=== PATIENT | female | born 1955 | race Caucasian/White ===

== ENCOUNTER 2023-01-21 20:55 | Emergency (ER) | payer MEDICARE ==
--- OUTSIDE RECORDS SUMMARY | 2023-01-21 20:57 | XMS REPORT | Continuity of Care Document ---
:1955 Author Organization [facility] t Address [address] [place] [address] [place] [id number] Care Team Providers Name Role Phone Unavailable Unavailable Unavailable Payers Payer Name Policy Type Policy Number Effective Date Expiration Date S [facility] [id number] 2021 (MEDICARE 00:00:00 REPLACEMENT O) Problems This patient has no known problems. Allergies, Adverse Reactions, Alerts This patient has no known allergies or adverse reactions. Medications This patient has no known medications. Procedures This patient has no known procedures. Encounters Start End Encounter Admission Attending Care Care Encounter Source Date/Time Date/Time Type Type Clinicians Facility Department ID 2022-03-14 2022-03-14 Outpatient [facility] [id number] [facility] 03:53:00 03:53:00 [id number] [facility] 2022-03-14 2022-03-14 [facility] [id number] [facility] 00:00:00 00:00:00 [id number] [facility] 2021-06-15 2021-06-15 [facility]patient [facility] [id number] [facility] 12:00:00 12:00:00 [id number] [facility] l [facility] Results This patient has no known results.
[2023-01-21 22:35] LABS: Absolute Lymphocytes (CBC) 0.4 K/uL (0.7-4.9); Hematocrit 38.6 % (36.0-45.0); Lymphocytes % 3.1 % (15.3-44.8); MCV 89.6 fL (80-100); MPV 8.6 fL (7.6-11.3); RBC Red Blood Cell Count 4.31 M/uL (3.86-4.86)
[2023-01-21 22:52] LABS: ALT/SGPT 20 U/L (13-56); AST/SGOT 20 U/L (15-37); Albumin 3.8 g/dL (3.4-5.0); Alkaline Phosphatase 70 U/L (45-117); BUN Blood Urea Nitrogen 22 mg/dL (7-18); Bicarbonate 22 mEq/L (21-32); Bilirubin Total 0.3 mg/dL (0.2-1.0); Glomerular Filtration Rate 66 ml/min (=/>90); Glucose Level 168 mg/dL (74-106); Lipase 24 U/L (13-75); Potassium 3.7 mEq/L (3.5-5.1); Protein, Total 7.7 g/dL (6.4-8.2); Sodium Level 137 mEq/L (136-145)
[2023-01-21] MEDS ORDERED: NA CHLORIDE 0.9% 1,000 ML ONE (22:59)
[2023-01-21] MEDS ORDERED: HYDROMORPHONE HCL 1 MG/ML INJ ONE (22:59)
[2023-01-21] MEDS ORDERED: ONDANSETRON 4 MG/2 ML VIAL ONE (22:59)
[2023-01-21 23:13] LABS: Troponin High Sensitivity < 3.0 pg/mL (<58.9)
[2023-01-21 23:30] LABS: Blood Morphology Comment NOT SEEN (NOT SEEN); Platelet Estimate ADEQ
[2023-01-22] MEDS ORDERED: NA CHLORIDE 0.9% 100 ML ONE (01:02)
[2023-01-22] MEDS ORDERED: PIPERACIL/TAZO 3.375 GM VIAL IV ONE (01:02)
--- NOTE | 2023-01-22 01:18 | EDPHYS ---
Physician Documentation [facility] Name: Bisi Brito Age: 67 yrs Sex: Female : 1955 Arrival Date: 01/21/2023 Time: 20:55 Bed 19 Private MD: ED Physician Veda Castillo HPI: 01/21 22:12 This 67 yrs old Female presents to ER via Ambulatory with complaints of Abdominal Pain, sp3 Nausea, Vomiting. 22:12 67-year-old female with history of cirrhosis of the liver and no other medical problems sp3 and takes no medications now presents with 1 day history of abdominal pain epigastric in nature, vomiting x2 and diarrhea times multiple episodes. Patient denies fever, chest pain, shortness of breath, headache, known sick contacts, travel history, possible bad food, syncope, near syncope, rash, focal neurological deficit or any other signs or symptoms on ROS at this time.. Historical: - Allergies: 21:32 No Known Allergies; mb9 - Home Meds: 21:32 None [Active]; mb9 - PMHx: 21:32 Cirrhosis of liver; mb9 - PSHx: 21:32 Cholecystectomy; Total abdominal hysterectomy; mb9 - Immunization history:: Adult Immunizations up to date. - Social history:: Smoking status: Patient/guardian denies using tobacco, Stopped _ months ago 3. ROS: 22:15 Constitutional: Negative for fever, chills, and weight loss, Eyes: Negative for injury, sp3 pain, redness, and discharge, ENT: Negative for injury, pain, and discharge, Neck: Negative for injury, pain, and swelling, Cardiovascular: Negative for chest pain, palpitations, and edema, Respiratory: Negative for shortness of breath, cough, wheezing, and pleuritic chest pain, Back: Negative for injury and pain, MS/Extremity: Negative for injury and deformity, Skin: Negative for injury, rash, and discoloration, Neuro: Negative for headache, weakness, numbness, tingling, and seizure, Psych: Negative for depression, anxiety, suicide ideation, homicidal ideation, and hallucinations, Allergy/Immunology: Negative for hives, rash, and allergies, Endocrine: Negative for neck swelling, polydipsia, polyuria, polyphagia, and marked weight changes, Hematologic/Lymphatic: Negative for swollen nodes, abnormal bleeding, and unusual bruising. 22:15 All other systems are negative. Exam: 22:15 Constitutional: This is a well developed, well nourished patient who is awake, alert, sp3 and in no acute distress. Head/Face: Normocephalic, atraumatic. Eyes: Pupils equal round and reactive to light, extra-ocular motions intact. Lids and lashes normal. Conjunctiva and sclera are non-icteric and not injected. Cornea within normal limits. Periorbital areas with no swelling, redness, or edema. Neck: Trachea midline, no thyromegaly or masses palpated, and no cervical lymphadenopathy. Supple, full range of motion without nuchal rigidity, or vertebral point tenderness. No Meningismus. Chest/axilla: Normal chest wall appearance and motion. Nontender with no deformity. No lesions are appreciated. Cardiovascular: Regular rate and rhythm with a normal S1 and S2. No gallops, murmurs, or rubs. Normal PMI, no JVD. No pulse deficits. Respiratory: Lungs have equal breath sounds bilaterally, clear to auscultation and percussion. No rales, rhonchi or wheezes noted. No increased work of breathing, no retractions or nasal flaring. Back: No spinal tenderness. No costovertebral tenderness. Full range of motion. Skin: Warm, dry with normal turgor. Normal color with no rashes, no lesions, and no evidence of cellulitis. MS/ Extremity: Pulses equal, no cyanosis. Neurovascular intact. Full, normal range of motion. Neuro: Awake and alert, GCS 15, oriented to person, place, time, and situation. Cranial nerves II-XII grossly intact. Motor strength 5/5 in all extremities. Sensory grossly intact. Cerebellar exam normal. Normal gait. Psych: Awake, alert, with orientation to person, place and time. Behavior, mood, and affect are within normal limits. 22:15 Abdomen/GI: Patient has epigastric pain to palpation without peritoneal signs, rebound or guarding. Hyperactive bowel sounds noted. Patient is also gagging but no current emesis.. 01/22 01:01 ECG was reviewed by the Attending Physician. EKG demonstrates normal sinus rhythm at 75 sp3 bpm with normal intervals, normal QRS, normal axis, nonspecific diffuse ST/T changes without evidence of acute ischemia. Vital Signs: 01/21 21:31 BP 125 / 67; Pulse 91; Resp 18; Temp 98(O); Pulse Ox 100% on R/A; Weight 54.43 kg; mb9 Height 5 ft. 6 in. ; Pain 10/10; 22:30 BP 121 / 51; Pulse 80; Resp 18 S; Pulse Ox 94% on 2 lpm NC; ha1 23:30 BP 139 / 58; Pulse 75; Resp 16; Pulse Ox 97% on 2 lpm NC; ha1 01/22 00:30 BP 141 / 64; Pulse 87; Resp 16 S; Pulse Ox 94% 2 lpm ; ha1 01:30 BP 131 / 56; Pulse 78; Resp 18 S; Pulse Ox 95% on 2 lpm NC; ha1 02:30 BP 127 / 53; Pulse 74; Resp 16 S; Pulse Ox 97% on 2 lpm NC; ha1 01/21 21:31 Body Mass Index 19.37 (54.43 kg, 167.64 cm) [facility] 01/21 21:31 Pain Scale: Adult [facility] MDM: 01/21 22:05 Patient medically screened. sp3 22:15 Data reviewed: vital signs, nurses notes, lab test result(s), EKG, radiologic studies. sp3 ED course: 67-year-old female with liver cirrhosis now with epigastric pain, vomiting and diarrhea. Differential diagnosis is broad includes foodborne illness, pancreatitis, biliary pathology including cholecystitis, acute coronary syndrome, functional abdominal pain, viral syndrome, among others. Will obtain CT scan of the abdomen pelvis, laboratory values and treat with Dilaudid and Zofran for symptomatic control with additional medications as needed. Disposition pending work-up and patient course.. 01/22 01:15 ED course: CT shows common bile duct dilatation of 9 mm close to the pancreatic head. sp3 Biliary labs are all within normal limits including AST, ALT, total bili, alk phos. MRCP will be indicated along with possible ERCP. Discussed with Dr. Batista at [facility] who is graciously excepted this patient and will consult gastroenterology upon arrival.. 01/21 22:04 Order name: CBC with Diff; Complete Time: 23:40 sp3 01/21 22:04 Order name: CMP; Complete Time: 23:40 sp3 01/21 22:04 Order name: Lipase; Complete Time: 23:40 sp3 01/21 22:04 Order name: Troponin High Sensitivity; Complete Time: 23:40 sp3 01/21 22:39 Order name: Manual Differential; Complete Time: 23:40 EDMS 01/22 00:48 Order name: SARS RAPID rv1 01/21 22:04 Order name: CT Abd/Pelvis - IV Contrast Only sp3 01/21 22:04 Order name: EKG; Complete Time: 22:05 sp3 01/21 22:04 Order name: IV Saline Lock; Complete Time: 22:31 sp3 01/21 22:04 Order name: Labs collected and sent; Complete Time: 22:31 sp3 01/21 22:04 Order name: EKG - Nurse/Tech; Complete Time: 22:57 sp3 Administered Medications: 01/21 22:13 Drug: Ondansetron IVP 4 mg Route: IVP; Site: right antecubital; ha1 22:40 Follow up: Response: No adverse reaction; Nausea is decreased ha1 22:15 Drug: HYDROmorphone IVP 1 mg Route: IVP; Site: right antecubital; ha1 22:40 Follow up: Response: No adverse reaction; Pain is decreased; RASS: Alert and Calm (0) ha1 22:18 Drug: NS 0.9% IV 1000 ml Route: IV; Rate: 1 bolus; Site: right antecubital; ha1 01/22 02:49 Follow up: Response: No adverse reaction; IV Status: Completed infusion; IV Intake: ha1 1000ml 01:05 Drug: Piperacillin-Tazobactam IVPB 3.375 grams Route: IVPB; Infused Over: 60 mins; ha1 Site: left antecubital; 01:35 Follow up: Response: No adverse reaction; IV Status: Completed infusion; IV Intake: ha1 100ml 02:41 Drug: Ondansetron IVP 4 mg Route: IVP; Site: left antecubital; ha1 03:25 Drug: HYDROmorphone IVP 1 mg Route: IVP; Site: left antecubital; ha1 Disposition Summary: 01/22/23 01:16 Transfer Ordered Transfer Location: [facility] sp3 Reason: Higher level of care sp3 Condition: Stable sp3 Problem: new sp3 Symptoms: have worsened sp3 Accepting Physician: Dr. Batista(01/22/23 03:36) ha1 Diagnosis - Abdominal pain, common bile duct dilatation, leukocytosis sp3 Forms: - Medication Reconciliation Form sp3 - SBAR form sp3 Signatures: Dispatcher [employer] EDMS Yung Ramirez, STEAM LOCOMOTIVE FIRER/FIREMAN-C STEAM LOCOMOTIVE FIRER/FIREMAN-Cla1 Veda Castillo MD MD sp3 Sanna Ozuna RN RN ha1 Tanika Cano RN RN mb9 Corrections: (The following items were deleted from the chart) 03:36 01:16 Dr. Batista sp3 ha1
--- NOTE | 2023-01-22 01:18 | ER ---
Nurse's Notes [facility] Name: Bisi Brito Age: 67 yrs Sex: Female : 1955 Arrival Date: 01/21/2023 Time: 20:55 Bed 19 Private MD: Diagnosis: Abdominal pain, common bile duct dilatation, leukocytosis Presentation: 01/21 21:31 Chief complaint: Patient states: "I've been throwing up, having diarrhea, and have a mb9 headache that started today. My stomach hurts all over. I've never felt like this before". Coronavirus screen: Vaccine status: Patient reports being unvaccinated. Ebola Screen: No symptoms or risks identified at this time. Initial Sepsis Screen: Does the patient meet any 2 criteria? No. Patient's initial sepsis screen is negative. Does the patient have a suspected source of infection? No. Patient's initial sepsis screen is negative. Risk Assessment: Do you want to hurt yourself or someone else? Patient reports no desire to harm self or others. Onset of symptoms was January 21, 2023. 21:31 Method Of Arrival: Ambulatory 9 21:31 Acuity: TAYLOR 3 mb9 Triage Assessment: 21:33 General: Appears uncomfortable, Behavior is cooperative. Pain: Complains of pain in mb9 abdomen and head Pain currently is 10 out of 10 on a pain scale. Quality of pain is described as aching, throbbing, Pain began suddenly, Is continuous. Neuro: Reilly Agitation-Sedation Scale (RASS): 0 - Alert and Calm Level of Consciousness is awake, alert, obeys commands, Oriented to person, place, time, situation, Appropriate for age. Respiratory: Airway is patent Respiratory effort is even, unlabored, Respiratory pattern is regular, symmetrical. GI: Abdomen is flat, non-distended, Reports diarrhea, nausea, vomiting. Derm: Skin is pink, warm \\T\\ dry. Historical: - Allergies: 21:32 No Known Allergies; mb9 - Home Meds: 21:32 None [Active]; mb9 - PMHx: 21:32 Cirrhosis of liver; mb9 - PSHx: 21:32 Cholecystectomy; Total abdominal hysterectomy; mb9 - Immunization history:: Adult Immunizations up to date. - Social history:: Smoking status: Patient/guardian denies using tobacco, Stopped _ months ago 3. Screenin:34 [facility] ED Fall Risk Assessment (Adult) History of falling in the last 3 months, ha1 including since admission No falls in past 3 months (0 pts) Confusion or Disorientation Yes (5 pts) Intoxicated or Sedated No (0 pts) Impaired Gait No (0 pts) Mobility Assist Device Used Yes (1 pt) Altered Elimination No (0 pt) Score/Fall Risk Level 0 - 2 = Low Risk Oriented to surroundings, Maintained a safe environment, Educated pt \\T\\ family on fall prevention, incl call for assistance when getting out of bed, Hourly rounding (assess needs \\T\\ fall precautionary measures) done. 01/22 00:35 Abuse screen: Denies threats or abuse. Denies injuries from another. Nutritional ha1 screening: No deficits noted. Tuberculosis screening: No symptoms or risk factors identified. Assessment: 01/21 21:34 General: Appears uncomfortable, Behavior is calm, cooperative. Pain: Complains of pain ha1 in back flank. Pain: Pain does not radiate. Pain currently is 8 out of 10 on a pain scale. Neuro: Level of Consciousness is awake, alert, obeys commands, Oriented to person, place, time, situation. Cardiovascular: Patient's skin is warm and dry. Respiratory: Airway is patent Respiratory effort is even, unlabored, Respiratory pattern is regular, symmetrical. 21:34 GI: Bowel sounds present X 4 quads. Abd is soft and non tender X 4 quads. Reports ha1 diarrhea, nausea, vomiting. 22:35 Reassessment: Patient and/or family updated on plan of care and expected duration. Pain ha1 level reassessed. Patient is alert, oriented x 3, equal unlabored respirations, skin warm/dry/pink. 23:30 Reassessment: Patient and/or family updated on plan of care and expected duration. Pain ha1 level reassessed. Patient is alert, oriented x 3, equal unlabored respirations, skin warm/dry/pink. 01/22 00:25 Reassessment: Patient and/or family updated on plan of care and expected duration. Pain ha1 level reassessed. Patient is alert, oriented x 3, equal unlabored respirations, skin warm/dry/pink. Patient states feeling better. Patient states symptoms have improved. 01:30 Reassessment: Patient and/or family updated on plan of care and expected duration. Pain ha1 level reassessed. Patient is alert, oriented x 3, equal unlabored respirations, skin warm/dry/pink. 02:15 Reassessment: report given to receiving nurse HEMA Jansen. ha1 02:30 Reassessment: Patient and/or family updated on plan of care and expected duration. Pain ha1 level reassessed. Patient is alert, oriented x 3, equal unlabored respirations, skin warm/dry/pink. 03:00 Reassessment: awaiting on EMS. ha1 03:25 Reassessment: requesting pain medication before transportation. Notified care provider. ha1 Vital Signs: 01/21 21:31 BP 125 / 67; Pulse 91; Resp 18; Temp 98(O); Pulse Ox 100% on R/A; Weight 54.43 kg; mb9 Height 5 ft. 6 in. ; Pain 10/10; 22:30 BP 121 / 51; Pulse 80; Resp 18 S; Pulse Ox 94% on 2 lpm NC; ha1 23:30 BP 139 / 58; Pulse 75; Resp 16; Pulse Ox 97% on 2 lpm NC; ha1 01/22 00:30 BP 141 / 64; Pulse 87; Resp 16 S; Pulse Ox 94% 2 lpm ; ha1 01:30 BP 131 / 56; Pulse 78; Resp 18 S; Pulse Ox 95% on 2 lpm NC; ha1 02:30 BP 127 / 53; Pulse 74; Resp 16 S; Pulse Ox 97% on 2 lpm NC; ha1 01/21 21:31 Body Mass Index 19.37 (54.43 kg, 167.64 cm) 9 01/21 21:31 Pain Scale: Adult 9 ED Course: 01/21 20:57 Patient arrived in ED. ja2 21:01 Veda Castillo MD is Attending Physician. sp3 21:32 Triage completed. mb9 21:33 Arm band placed on. mb9 21:34 Patient has correct armband on for positive identification. Placed in gown. Bed in low ha1 position. Call light in reach. Side rails up X 1. Adult w/ patient. 21:51 Sanna Ozuna RN is Primary Nurse. ha1 22:31 CBC with Diff Sent. ha1 22:31 CMP Sent. ha1 22:31 Lipase Sent. ha1 01/22 00:15 CT Abd/Pelvis - IV Contrast Only In Process Unspecified. EDMS 00:[address] [facility] with Amelie Ramirez. rv1 03:34 No provider procedures requiring assistance completed. Patient transferred, IV remains ha1 in place. Administered Medications: 01/21 22:13 Drug: Ondansetron IVP 4 mg Route: IVP; Site: right antecubital; ha1 22:40 Follow up: Response: No adverse reaction; Nausea is decreased ha1 22:15 Drug: HYDROmorphone IVP 1 mg Route: IVP; Site: right antecubital; ha1 22:40 Follow up: Response: No adverse reaction; Pain is decreased; RASS: Alert and Calm (0) ha1 22:18 Drug: NS 0.9% IV 1000 ml Route: IV; Rate: 1 bolus; Site: right antecubital; ha1 01/22 02:49 Follow up: Response: No adverse reaction; IV Status: Completed infusion; IV Intake: ha1 1000ml 01:05 Drug: Piperacillin-Tazobactam IVPB 3.375 grams Route: IVPB; Infused Over: 60 mins; ha1 Site: left antecubital; 01:35 Follow up: Response: No adverse reaction; IV Status: Completed infusion; IV Intake: ha1 100ml 02:41 Drug: Ondansetron IVP 4 mg Route: IVP; Site: left antecubital; ha1 03:25 Drug: HYDROmorphone IVP 1 mg Route: IVP; Site: left antecubital; ha1 Medication: 02:57 VIS not applicable for this client. ha1 Intake: 01:35 IV: 100ml; Total: 100ml. ha1 02:49 IV: 1000ml; Total: 1100ml. ha1 Outcome: 01:16 ER care complete, transfer ordered by . sp3 02:58 Discharge instructions given to patient, family, Instructed on the need for transfer, ha1 Demonstrated understanding of instructions. 03:35 Transferred by ground EMS to [facility], Transfer form completed. ha1 Note: transferred by [facility] 03:35 Condition: stable 03:36 Patient left the ED. ha1 Signatures: Dispatcher [employer] EDMS Veda Castillo MD MD sp3 Rama Guevara Heidy RN RN ha1 Tanika Cano RN RN mb9 Chaya Robbins 1 Corrections: (The following items were deleted from the chart) 02:54 01/21 22:30 BP 121 / 51; Pulse 80bpm; Resp 18bpm; Spontaneous; Pulse Ox 95% 2 lpm Nasal ha1 Cannula; ha1 01/22 04:06 03:30 Reassessment: requesting pain medication before transportation. 1 1
[2023-01-22 01:47] LABS: SARS-CoV-2 Antigen Rapid Res Positive (Negative)
[2023-01-22] MEDS ORDERED: ONDANSETRON 4 MG/2 ML VIAL ONE (02:49)
[2023-01-22] MEDS ORDERED: HYDROMORPHONE HCL 1 MG/ML INJ ONE (03:37)
[2023-01-22 03:41] VITALS: TEMP 98
[2023-01-22 03:50] VITALS: BP 127/53; O2SAT 97
--- NOTE | 2023-01-22 05:32 | EKG ---
Test Date: 2023-01-21 Test Time: 22:55:06 Mica Plate Layer: SAMSON MEASUREMENT RESULTS: Intervals: Rate: 75 NM: 140 QRSD: 94 QT: 390 QTc: 435 [place]: P: 55 NM: 140 QRS: 55 T: 28 INTERPRETIVE STATEMENTS: Normal sinus rhythm Normal ECG No previous ECG available for comparison Electronically Signed On 01-22-23 05:32:13 CDT by Richy Escamilla
--- NOTE | 2023-01-22 22:38 | RAD REPORT ---
EXAM DESCRIPTION: CT - Abdomen Pelvis W Contrast - 01/22/2023 7:02 am CLINICAL HISTORY: 67 years Female abd pain, vomiting, diarrhea COMPARISON: None TECHNIQUE: Images were obtained in axial, sagittal, and coronal planes. Intravenous contrast was adm inistered. This exam was performed according to our departmental dose-optimization program which includes use of Automated Exposure Control, adjustment of the mA and/or kV according to patient size and/or use of i terative reconstruction technique. FINDINGS: Prior cholecystectomy. Mild intrahepatic biliary dilatation. No focal hepatic lesions. Com mon hepatic duct is dilated measuring 1.3 cm in transverse dimension. Common bile duct measures 9 mm in the region of the head of the pancreas. Unremarkable spleen, pancreas, and adrenal glands bilatera lly. Large hiatal hernia. No obstructing renal or ureteral calculi bilaterally. Left renal cyst. Otherwise unremarkable renal p arenchyma bilaterally. No hydronephrosis bilaterally. Unremarkable bladder. Appendix within normal limits. No bowel obstruction, perforation, or inflammation. Calcification abdominal aorta with no dilatation seen. Unremarkable portal vein. No adenopathy or abn ormal fluid collections noted. Chronic changes lower lungs bilaterally. Airspace attenuation posterior lower lobes bilaterally consi stent with atelectatic change versus infiltrate. No acute osseous abnormality. Anterior fusion T10-11. IMPRESSION: Prior cholecystectomy. Dilated common hepatic duct. Mild intrahepatic biliary dilatation . Correlation with MRCP suggested to further exclude choledocholithiasis or stricture. Large hiatal h ernia. Atelectatic change versus infiltrate lower lobes bilaterally. Otherwise unremarkable study. Electronically signed by: Jolene Roland MD 01/22/2023 12:33 AM CDT Due to temporary technical issues with the PACS/Fluency reporting system, reports are being signed by the in house radiologists without review as a courtesy to insure prompt reporting. The interpreting radiologist is fully responsible for the content of the report.
== END 2023-01-22 03:36 | disposition short-term general hospital (02) ==
LOC: ER 20:55
DX: K83.8 Other specified diseases of biliary tract (principal); D72.829 Elevated white blood cell count, unspecified; Z20.822 Contact with and (suspected) exposure to COVID-19; K74.60 Unspecified cirrhosis of liver
CPT/HCPCS: 93005; 85025; 36415; 84484; 83690; 80053; 74177; 99285; 87811; Q9967; J2543; J1170 ×2; J2405 ×2; J7030

== ENCOUNTER 2023-01-27 10:31 | Emergency (ER) | payer MEDICARE ==
--- OUTSIDE RECORDS SUMMARY | 2023-01-27 10:35 | XMS REPORT | Continuity of Care Document ---
:1955 Author Organization [facility] t Address [address] [place] [address] [address] [place] [address] Care Team Providers Name Role Phone Lynne LOUIS, Hina Calderon Attending Clinician Lesley Ray MD Attending Clinician Lorena Carrasco MD Attending Clinician Maddie Blank MD Attending Clinician MADDIE BLANK Attending Clinician Unavailable HINA DAWSON Attending Clinician Unavailable LESLEY RAY Admitting Clinician Unavailable Payers Payer Name Policy Type Policy Number Effective Date Expiration Date Christy mace [facility] [id number] 2021 (MEDICARE 00:00:00 REPLACEMENT HMO) Problems Condition Condition Condition Status Onset Resolution Last Treating Co mments Source Name Details Category Date Date Treatment Clinician Date Dilated Dilated Disease Active [facility] 00 Center Allergies, Adverse Reactions, Alerts Allergy Allergy Status Severity Reaction(s) Onset Inactive Treating Comm ents Source Name Type Date Date Clinician NO KNOWN Allergy Active [facility] Social History Social Habit Start Date Stop Date Quantity Comments Source History of Passive smoker [facility] use [facility] r Exposure to 2023-01-12 2023-01-[address] [facility] SARS-CoV-2 00:00:00 05:14:00 Medical Center (event) Tobacco use and 2023-01-22 2023-01-22 Smokeless tobacco [facility] exposure 00:00[facility]00 00:00:00 non-user [facility] Alcohol intake 2023-01-22 2023-01-22 Ex-drinker JAIR Partida Cristian es 00:00:00 00:00:00 (finding) Medical Center Sex Assigned At [birth year] F [facility] Sherita sharma 00:00:00 00:00:00 [facility] Center Smoking Status Start Date Stop Date Source Ex-smoker 2023-01-22 00:00:00 2023-01-22 00:00:00 [facility] Medications Ordered Filled Start Stop Current Ordering Indication Dosage Frequency Signature Comments Components Source Medication Medication Date Date Medication? Clinician (SIG) Name Name omeprazole 2022- Yes 40mg Q.5D Take [address] (PriLOSEC) 01-24- capsule [facility] 40 MG 00:00: 23:59 (40 mg Medical capsule 00 :00 total) by Center mouth in the morning and 1 capsule (40 mg total) before bedtime. Do all this for 30 days. dexAMETHaso 2022- Yes 6mg Take [address] [facility] [address] ne 01-24 06-03 tablet (6 [facility] (DECADRON) 00:00: 23:59 mg total) M edical 6 MG tablet 00 :00 by mouth Cent er daily with breakfast for 7 days. Vital Signs Vital Name Observation Time Observation Value Comments Source HEIGHT 2023-01-22 04:55:00 165.1 cm WEIGHT 2023-01-22 04:55:00 60.873 kg HEIGHT 2023-01-22 04:55:00 165.1 cm WEIGHT 2023-01-22 04:55:00 60.873 kg HEIGHT 2023-01-22 04:55:00 165.1 cm WEIGHT 2023-01-22 04:55:00 60.873 kg Systolic blood 2023-01-24 15:34:00 160 mm[Hg] [facility] pressure [facility] Center Diastolic blood 2023-01-24 15:34:00 69 mm[Hg] [facility] Heart rate 2023-01-24 15:34:00 56 /min [facility] Body temperature 2023-01-24 15:34:00 36.67 [facility] Respiratory rate 2023-01-24 15:34:00 17 /min [facility] Oxygen saturation in 2023-01-24 15:34:00 98 /min [facility] Arterial blood by Medical Ce nter Pulse oximetry Body height 2023-01-22 10:24:00 165.1 cm [facility] Body weight 2023-01-22 10:24:00 60.9 kg [facility] BMI 2023-01-22 10:24:00 22.34 kg/m2 [facility] Procedures Procedure Date / Time Performed Performing Clinician Sour e COMPREHENSIVE METABOLIC 2023-01-24 08:05:00 Yonatan Rebollar [facility] CBC W/PLT COUNT & AUTO 2023-01-24 08:05:00 Yonatan Rebollar [facility] CBC W/PLT COUNT & AUTO 2023-01-24 08:05:00 Yonatan Rebollar [facility] POCT-GLUCOSE METER 2023-01-24 05:28:00 Lorena Carrasco [facility] POCT-GLUCOSE METER 2023-01-23 15:27:00 Lorena Carrasco [facility] MR ABDOMEN WITHOUT IV 2023-01-23 08:40:00 Lesley Ray [facility] CBC (HEMOGRAM ONLY) 2023-01-23 04:55:00 Lesley Ray [facility] BASIC METABOLIC PANEL 2023-01-23 04:55:[address] [facility] HEPATIC FUNCTION PANEL 2023-01-23 04:55:00 Lesley Ray [facility] POCT-GLUCOSE METER 2023-01-22 12:33:00 Lesley Ray [facility] XR CHEST 1 VIEW PORTABLE 2023-01-22 12:30:00 Lesley Ray [facility] BASIC METABOLIC PANEL 2023-01-22 05:36:00 Hina Dawson [facility] MAGNESIUM 2023-01-22 05:36:00 Hina Dawson [facility] LACTIC ACID, VENOUS 2023-01-22 05:36:00 LynneHina [facility] I [facility] CBC W/PLT COUNT & AUTO 2023-01-22 05:36:00 Hina Dawson [facility] DIFFERENTIAL [facility] CBC W/PLT COUNT & AUTO 2023-01-22 05:36:00 LynneHina [facility] HEPATIC FUNCTION PANEL 2023-01-22 05:36[facility]00 [facility] EKG-SCANNED 2023-01-22 00:00:00 ProviderRocio [facility] es [facility] Plan of Care Planned Activity Planned Date Details Comments Source Future Scheduled 2024-01-[address] [facility] Test 00:00:00 Counseling and Medical Cente r Screening (12+) [code = Tobacco Cessation Counseling and Screening (12+)] Future Scheduled 2023-05-[address] [facility] Test 00:00:00 (Season Ended) [code = [facility] INFLUENZA VACCINE (Season Ended)] Future Scheduled 2022-09-[address] [facility] Test 00:00:00 WELLNESS (YEAR 2 or Medical Center FIRST YEAR if no IPPE) [code = MEDICARE ANNUAL WELLNESS (YEAR 2 or FIRST YEAR if no IPPE)] Future Scheduled 2022-08-[address] [facility] Test 00:00:00 (12+) [code = Medical Center DEPRESSION SCREENING (12+)] Future Scheduled 2022-08-31 FALLS RISK SCREENING [facility] Test 00:00:00 [code = FALLS RISK Medical C enter SCREENING] Future Scheduled 2019 PNEUMOCOCCAL 65+ YRS ([address] [facility] Test 00:00:00 - PCV) [code = Medical Cente r PNEUMOCOCCAL 65+ YRS (1 - PCV)] Future Scheduled 2004 SHINGLES VACCINES ([address] [facility] Test 00:00:00 2) [code = SHINGLES Medical Center VACCINES (1 of 2)] Future Scheduled 1973 DTAP/TDAP/TD VACCINES [facility] Test 00:00:00 (1 - Tdap) [code = Medical C enter DTAP/TDAP/TD VACCINES (1 - Tdap)] Future Scheduled 1972 HEPATITIS C SCREENING [facility] Test 00:00:00 [code = HEPATITIS C Medical Center SCREENING] Future Scheduled 1955-04-08 COVID-19 VACCINE (#1) [facility] Test 00:00:00 [code = COVID-[address] VACCINE (#1)] Future Scheduled 1954 Screening for malignant [facility] Test 00:00:00 neoplasm of breast Medical C enter (procedure) [code = 049798727] Future Scheduled 1954 CT Colonography (combo) [facility] Test 00:00:00 [code = CT Colonography [facility] (combo)] Future Scheduled 1954 Screening for malignant [facility] Test 00:00:00 neoplasm of colon Medical Ce nter (procedure) [code = 279014808] Future Scheduled 1954 Screening for malignant [facility] Test 00:00:00 neoplasm of colon Medical Ce nter (procedure) [code = 793695452] Future Scheduled 1955 DXA SCAN [code = DXA [facility] Test 00:00:00 SCAN] Medical Center Future Scheduled 1954 Screening for malignant [facility] Test 00:00:00 neoplasm of colon Medical Ce nter (procedure) [code = 302630671] Future Scheduled 1954 Screening for malignant [facility] Test 00:00:00 neoplasm of colon Medical Ce nter (procedure) [code = 986523102] Future Scheduled 1955 Sigmoidoscopy [code = [facility] Test 00:00:00 Sigmoidoscopy] Medical Sue garza Encounters Start End Encounter Admission Attending Care Care Encounter Source Date/Time Date/Time Type Type Clinicians Facility Department ID 2023-01-22 2023-01-24 [facility] Lynne Hina [facility] [id number] [address] 04:39:00 17:34:00 Encounter Lesley Ray [place] [facility] Maddie Blank enter 2023-01-22 2023-01-24 Inpatient ER HEATHER BLANK Gastro [id number] 226 [facility] 04:39:00 17:34:00 MADDIE 2023-01-22 2023-01-[address] [facility] [id number] [facility] 00:00:00 00:00:00 [facility] 2022-03-14 2022-03-14 Outpatient DMG DMG [id number] [facility] 03:53:00 03:53:00 0715 [facility] l [facility] 2022-03-14 2022-03-14 Outpatient DMG DMG [id number] [facility] 00:00:00 00:00:00 0506 Medica l Group 2021-06-15 2021-06-15 Outpatient DMG DMG [id number] [facility] 12:00:00 12:00:00 1016 Medica l Group Results Test Description Test Time Test Comments Results Result Comments Source COMPREHENSIVE METABOLIC PANEL 2023-01-24 08:40:53 Test Item Value Reference Range Interpretation Comme nts TOTAL PROTEIN (BEAKER) 6.7 gm/dL 6.0-8.3 Speci men slightly hemolyzed (test code = 770) ALBUMIN (BEAKER) (test 3.6 g/dL 3.5-5.0 Speci men slightly hemolyzed code = 1145) ALKALINE PHOSPHATASE 74 U/L 40-150 (BEAKER) (test code = 346) BILIRUBIN TOTAL (BEAKER) 0.4 mg/dL 0.2-1.2 Spe cimen slightly hemolyzed (test code = 377) SODIUM (BEAKER) (test 140 meq/L 136-145 code = 381) POTASSIUM (BEAKER) (test 3.8 meq/L 3.5-5.1 Spe cimen slightly hemolyzed code = 379) CHLORIDE (BEAKER) (test 108 meq/L 98-107 H code = 382) CO2 (BEAKER) (test code 20 meq/L 22-29 L = 355) BLOOD UREA NITROGEN 15 mg/dL 7-21 (BEAKER) (test code = 354) CREATININE (BEAKER) 0.73 mg/dL 0.57-1.25 Specimen slightly hemolyzed (test code = 358) GLUCOSE RANDOM (BEAKER) 142 mg/dL 70-105 H (test code = 652) CALCIUM (BEAKER) (test 8.4 mg/dL 8.4-10.2 code = 697) AST (SGOT) (BEAKER) 70 U/L 5-34 H Specimen slightly hemolyzed (test code = 353) ALT (SGPT) (BEAKER) 142 U/L 6-55 H Specimen slightly hemolyzed (test code = 347) EGFR (BEAKER) (test code 90 mL/min/1.73 sq Interpretation of eGFR values = 1092) m Stage Descripti on Result G1 Normal or high >=90 G2 Mildly decreased 60-89 G3a Mildly to moderately 45-5 9 G3b Moderately to severely 30- 44 G4 Severly decreased 15-29 G5 Kidney failure <15Repo rted eGFR is based on the CK D-EPI 2020 equation that d oes not use a race coefficien tEstimated GFR is not as accurate as Creatinine Clearance in pr edicting glomerular filt ration rate. Estimated GFR i s not applicable for dialysis mendel garcía Color Control Operator ID - [id number] W/PLT COUNT & AUTO [id number] 08:21:25 Test Item Value Reference Range Interpretation Comments WHITE BLOOD CELL COUNT 7.7 K/ L 3.5-10.5 (BEAKER) (test code = 775) RED BLOOD CELL COUNT 4.03 M/ L 3.93-5.22 (BEAKER) (test code = 761) HEMOGLOBIN (BEAKER) 12.1 GM/DL 11.2-15.7 (test code = 410) HEMATOCRIT (BEAKER) 34.9 % 34.1-44.9 (test code = 411) MEAN CORPUSCULAR 87 fL 79-95 Discordant results VOLUME (BEAKER) (test compar ed to previous code = 753) results; clinic al correlation req uired MEAN CORPUSCULAR 30.0 pg 25.6-32.2 HEMOGLOBIN (BEAKER) (test code = 751) MEAN CORPUSCULAR 34.7 GM/DL 32.2-35.5 HEMOGLOBIN CONC (BEAKER) (test code = 752) RED CELL DISTRIBUTION 13.0 % 11.7-14.4 WIDTH (BEAKER) (test code = 412) PLATELET COUNT 180 K/CU MM 150-450 (BEAKER) (test code = 756) MEAN PLATELET VOLUME 10.7 fL 9.4-12.3 (BEAKER) (test code = 754) NUCLEATED RED BLOOD 0 /100 WBC 0-0 CELLS (BEAKER) (test code = 413) NEUTROPHILS RELATIVE 80 % PERCENT (BEAKER) (test code = 429) LYMPHOCYTES RELATIVE 10 % PERCENT (BEAKER) (test code = 430) MONOCYTES RELATIVE 10 % PERCENT (BEAKER) (test code = 431) EOSINOPHILS RELATIVE 0 % PERCENT (BEAKER) (test code = 432) BASOPHILS RELATIVE 0 % PERCENT (BEAKER) (test code = 437) NEUTROPHILS ABSOLUTE 6.18 K/ L 1.56-6.13 H COUNT (BEAKER) (test code = 670) LYMPHOCYTES ABSOLUTE 0.74 K/ L 1.18-3.74 L COUNT (BEAKER) (test code = 414) MONOCYTES ABSOLUTE 0.77 K/ L 0.24-0.36 H COUNT (BEAKER) (test code = 415) EOSINOPHILS ABSOLUTE 0.00 K/ L 0.04-0.36 L COUNT (BEAKER) (test code = 416) BASOPHILS ABSOLUTE 0.00 K/ L 0.01-0.08 L COUNT (BEAKER) (test code = 417) IMMATURE 0.50 % 0.00-1.00 GRANULOCYTES-RELATIVE PERCENT (BEAKER) (test code = 2801) POC-Glucose [id number] 05:47:19 Test Item Value Reference Range Interpretation Comments POC-Glucose Meter (test 133 mg/dL 70-110 H : TE STED AT [facility] code = 1538) [address] [facility], 770 30: Color Control Operator/Techni zahra ID = [id number] for DAWOOD CARSON Lab Interpretation (test Abnormal code = 06682-1) [facility] [id number] 05:47:19 Test Item Value Reference Range Interpretation Comments POC-GLUCOSE METER 133 mg/dL 70-110 H : [facility] (BEAKER) ([facility] = [facility], 1538) [address]: Color Control Operator/Techni zahra ID = [id number] for ALEJA DAVDI POCT-GLUCOSE [id number] 15:41:27 Test Item Value Reference Range Interpretation Comments POC-GLUCOSE METER 155 mg/dL 70-110 H : TESTED A T [facility] 6720 (BEAKER) (test code [facility], = 1538) [address]: Color Control Operator/Techni zahra ID = [id number] for COLLIN KERNS MR, ABDOMEN, [id number] 13:25:00Unlisted Reason for Exam - Click Yes and Enter Reason Below->YesUnlisted Reason for Exam->dilated CBD, [facility] 1955 Sex: FFINAL REPORT MRCP, MRI of abdomen without contrast Clinical History: Unlisted Reasonfor Examdilated CBD, eval for choledocholithiasis Technique: Multiplanar and multisequence MR imagesof the biliary system are obtained, with dedicated MRCP protocol and images. No intravenous contrastis administered. In addition, 3 dimensional reformatted images of the biliary system are obtained to evaluate the biliary anatomy. Comparison: None Discussion: This examination is not dedicated to evaluating masses or parenchymal abnormalities of the abdominal organs. Liver has a nodular contour, suggestive of cirrhosis. No liver lesion is identified on this noncontrast exam. Status post cholecystectomy. The common duct is dilated, and measures up to 13 mm in diameter. No definite ductal filling defect or stricture is seen. Note the papillary region is not well assessed by MRI. Spleen, and adrenal glands are normal. The pancreatic duct is normal in caliber. No pancreatic lesion, no peripancreatic edema/fluid. No hydronephrosis. A 1 cm T2 bright focus in the upper pole of the left kidney likely represents a cyst. There is a moderate-sized hiatal hernia. No bowel obstruction. No ascites, or lymphadenopathy. Normal marrow signal. Impression: Status post cholecystectomy. There is moderate common duct dilatation. No MR evidence of stricture or choledocholithiasis. Note that the papillary region is not well assessed by MRI, and correlation with ERCP can be considered if clinically appropriate. Nodular contour of liver is concerning for cirrhosis. Moderate sized hiatal hernia. Signed: Demetrio Bermudezeport Verified Date/Time: 01/23/2023 13:25:53 Reading Location: [facility] B1 [id number] Ortho Consult Reading Room BASIC METABOLIC [id number] 06:10:26 Test Item Value Reference Range Interpretation Comments SODIUM (BEAKER) 137 meq/L 136-145 (test code = 381) POTASSIUM 4.2 meq/L 3.5-5.1 Specimen slight ly (BEAKER) (test hemolyzed code = 379) CHLORIDE (BEAKER) 108 meq/L 98-107 H (test code = 382) CO2 (BEAKER) 16 meq/L 22-29 L (test code = 355) BLOOD UREA 16 mg/dL 7-21 NITROGEN (BEAKER) (test code = 354) CREATININE 0.84 mg/dL 0.57-1.25 Specimen slight ly (BEAKER) (test hemolyzed code = 358) GLUCOSE RANDOM 102 mg/dL 70-105 (BEAKER) (test code = 652) CALCIUM (BEAKER) 8.2 mg/dL 8.4-10.2 L (test code = 697) EGFR (BEAKER) 76 Interpretatio n of eGFR (test code = mL/min/1.73 values Stage De scription 1092) sq m Result G1 Cherise l or high >=90 G2 Mildly decreased 60-89 G3a Mildl y to moderately 45-5 9 G3b Moderately to s everely 30-44 G4 Severl y decreased 15-29 G5 Kidney failure <15Reported eGF R is based on the CKD-EPI 2021 equation that d oes not use a race coefficientEsti mated GFR is not as accur ate as Creatinine Monica neff in predicting glom erular filtration rate . Estimated GFR is not appl icable for dialysis patien ts Color Control Operator ID - ADMINHEPATIC FUNCTION [id number] 06:10:26 Test Item Value Reference Range Interpretation Comments TOTAL PROTEIN (BEAKER) 6.8 gm/dL 6.0-8.3 Speci men slightly (test code = 770) hemolyzed ALBUMIN (BEAKER) (test 3.7 g/dL 3.5-5.0 Speci men slightly code = 1145) hemolyzed BILIRUBIN TOTAL 0.3 mg/dL 0.2-1.2 Specimen sli ghtly (BEAKER) (test code = hemoly zed 377) BILIRUBIN DIRECT 0.1 mg/dL 0.1-0.5 Specimen sl ightly (BEAKER) (test code = hemoly zed 706) ALKALINE PHOSPHATASE 85 U/L 40-150 (BEAKER) (test code = 346) AST (SGOT) (BEAKER) 178 U/L 5-34 H Specimen slightly (test code = 353) hemolyzed ALT (SGPT) (BEAKER) 218 U/L 6-55 H Specimen slightly (test code = 347) hemolyzed Color Control Operator ID - [id number] (HEMOGRAM ONLY)2023-01-23 05:10:57 Test Item Value Reference Range Interpretation Comments WHITE BLOOD CELL COUNT (BEAKER) 7.9 K/ L 3.5-10.5 (test code = 775) RED BLOOD CELL COUNT (BEAKER) 4.00 M/ L 3.93-5.22 (test code = 761) HEMOGLOBIN (BEAKER) (test code = 11.9 GM/DL 11.2-15.7 410) HEMATOCRIT (BEAKER) (test code = 36.2 % 34.1-44.9 411) MEAN CORPUSCULAR VOLUME (BEAKER) 91 fL 79-95 (test code = 753) MEAN CORPUSCULAR HEMOGLOBIN 29.8 pg 25.6-32.2 (BEAKER) (test code = 751) MEAN CORPUSCULAR HEMOGLOBIN CONC 32.9 GM/DL 32.2-35.5 (BEAKER) (test code = 752) RED CELL DISTRIBUTION WIDTH 12.8 % 11.7-14.4 (BEAKER) (test code = 412) PLATELET COUNT (BEAKER) (test 155 K/CU MM 150-450 code = 756) MEAN PLATELET VOLUME (BEAKER) 10.8 fL 9.4-12.3 (test code = 754) NUCLEATED RED BLOOD CELLS 0 /100 WBC 0-0 (BEAKER) (test code = 413) RAD, CHEST, 1 VIEW, NON [id number] 01:51:00Reason for exam:->eval for pneumoniaShould this be performed at the bedside?->Yes [facility] : 1955 Sex: FFINAL REPORT AP view of the chest dated 01/23/2023 CLINICAL INFORMATION: eval for pneumonia Comment: Heart is normal in size. Pulmonary vasculature is unremarkable. Subsegmental atelectasis is seen in the right lower lobe. The rest of the are clear. No pulmonary infiltrate or pleural effusion is present. Impression: No pneumonia. Signed: Lucy Mata MDReport Verified Date/Time: 01/23/2023 01:51:18 POCT-GLUCOSE [id number] 12:52:35 Test Item Value Reference Range Interpretation Comments POC-GLUCOSE METER 104 mg/dL 70-110 : TESTED A T [facility] 6720 (BEAKER) (test code = ANDREY Garza [facility], 1538) [address]: Color Control Operator/Techni zahra ID = [id number] for ISSAC ELIZABETH BASIC METABOLIC [id number] 06:40:56 Test Item Value Reference Range Interpretation Comments SODIUM (BEAKER) 141 meq/L 136-145 (test code = 381) POTASSIUM 3.8 meq/L 3.5-5.1 (BEAKER) (test code = 379) CHLORIDE (BEAKER) 109 meq/L 98-107 H (test code = 382) CO2 (BEAKER) 22 meq/L 22-29 (test code = 355) BLOOD UREA 18 mg/dL 7-21 NITROGEN (BEAKER) (test code = 354) CREATININE 0.82 mg/dL 0.57-1.25 (BEAKER) (test code = 358) GLUCOSE RANDOM 133 mg/dL 70-105 H (BEAKER) (test code = 652) CALCIUM (BEAKER) 8.4 mg/dL 8.4-10.2 (test code = 697) EGFR (BEAKER) 78 Interpretatio n of eGFR (test code = mL/min/1.73 values Stage De scription 1092) sq m Result G1 Cherise l or high >=90 G2 Mildly decreased 60-89 G3a Mildl y to moderately 45-5 9 G3b Moderately to s everely 30-44 G4 Severl y decreased 15-29 G5 Kidney failure <15Reported eGF R is based on the CKD-EPI 2020 equation that d oes not use a race coefficientEsti mated GFR is not as accur ate as Creatinine Monica aishwarya in predicting glom erular filtration rate . Estimated GFR is not appl icable for dialysis patien ts Color Control Operator ID - [id number] 06:40:56 Test Item Value Reference Range Interpretation Comments MAGNESIUM (BEAKER) (test code = 1.8 mg/dL 1.6-2.6 627) Color Control Operator ID - MMHEPATIC FUNCTION [id number] 06:40:56 Test Item Value Reference Range Interpretation Comments TOTAL PROTEIN (BEAKER) (test code = 6.7 gm/dL 6.0-8.3 770) ALBUMIN (BEAKER) (test code = 1145) 3.8 g/dL 3.5-5.0 BILIRUBIN TOTAL (BEAKER) (test code 0.3 mg/dL 0.2-1.2 = 377) BILIRUBIN DIRECT (BEAKER) (test 0.2 mg/dL 0.1-0.5 code = 706) ALKALINE PHOSPHATASE (BEAKER) (test 70 U/L 40-150 code = 346) AST (SGOT) (BEAKER) (test code = 150 U/L 5-34 H 353) ALT (SGPT) (BEAKER) (test code = 123 U/L 6-55 H 347) Color Control Operator ID - MMCBC W/PLT COUNT & AUTO [id number] 06:13:41 Test Item Value Reference Range Interpretation Comments WHITE BLOOD CELL COUNT (BEAKER) 7.9 K/ L 3.5-10.5 (test code = 775) RED BLOOD CELL COUNT (BEAKER) 3.83 M/ L 3.93-5.22 L (test code = 761) HEMOGLOBIN (BEAKER) (test code = 11.6 GM/DL 11.2-15.7 410) HEMATOCRIT (BEAKER) (test code = 34.8 % 34.1-44.9 411) MEAN CORPUSCULAR VOLUME (BEAKER) 91 fL 79-95 (test code = 753) MEAN CORPUSCULAR HEMOGLOBIN 30.3 pg 25.6-32.2 (BEAKER) (test code = 751) MEAN CORPUSCULAR HEMOGLOBIN CONC 33.3 GM/DL 32.2-35.5 (BEAKER) (test code = 752) RED CELL DISTRIBUTION WIDTH 12.8 % 11.7-14.4 (BEAKER) (test code = 412) PLATELET COUNT (BEAKER) (test 171 K/CU MM 150-450 code = 756) MEAN PLATELET VOLUME (BEAKER) 10.7 fL 9.4-12.3 (test code = 754) NUCLEATED RED BLOOD CELLS 0 /100 WBC 0-0 (BEAKER) (test code = 413) NEUTROPHILS RELATIVE PERCENT 85 % (BEAKER) (test code = 429) LYMPHOCYTES RELATIVE PERCENT 4 % (BEAKER) (test code = 430) MONOCYTES RELATIVE PERCENT 10 % (BEAKER) (test code = 431) EOSINOPHILS RELATIVE PERCENT 0 % (BEAKER) (test code = 432) BASOPHILS RELATIVE PERCENT 0 % (BEAKER) (test code = 437) NEUTROPHILS ABSOLUTE COUNT 6.74 K/ L 1.56-6.13 H (BEAKER) (test code = 670) LYMPHOCYTES ABSOLUTE COUNT 0.33 K/ L 1.18-3.74 L (BEAKER) (test code = 414) MONOCYTES ABSOLUTE COUNT (BEAKER) 0.79 K/ L 0.24-0.36 H (test code = 415) EOSINOPHILS ABSOLUTE COUNT 0.00 K/ L 0.04-0.36 L (BEAKER) (test code = 416) BASOPHILS ABSOLUTE COUNT (BEAKER) 0.02 K/ L 0.01-0.08 (test code = 417) IMMATURE GRANULOCYTES-RELATIVE 0.40 % 0.00-1.00 PERCENT (BEAKER) (test code = 2801) LACTIC ACID, [id number] 06:07:20 Test Item Value Reference Range Interpretation Comments LACTATE BLOOD VENOUS (2) (BEAKER) 1.02 mmol/L 0.50-2.00 (test code = 2872) Color Control Operator ID - MM
--- NOTE | 2023-01-27 12:05 | RAD REPORT ---
EXAM DESCRIPTION: CT - Abdomen Pelvis Wo Contrast - 01/27/2023 11:51 am CLINICAL HISTORY: ABD PAIN COMPARISON: Abdomen Pelvis W Contrast dated 01/21/2023 TECHNIQUE: Thin cut axial CT imaging of the abdomen and pelvis was performed without IV contrast. Mu ltiplanar reformats were generated and reviewed. All CT scans are performed using dose optimization technique as appropriate and may include automated exposure control or mA/KV adjustment according to patient size. FINDINGS: No suspicious findings in the lung bases. Moderate hiatal hernia. The liver, spleen, and pancreas show no suspicious findings. Status post cholecystectomy. No evidence of intra or extrahepatic biliary ductal dilation. Symmetric renal contour, without suspicious parenchymal findings within limits of noncontrast techniq ue. No evidence of radiopaque calculi or hydroureteronephrosis. No dilated bowel loops. Sigmoid diverticulosis. Long segment of nondistention along the transverse an d descending colon with minimal adjacent fat stranding along the descending colon. This is nonspecifi c but could relate to mild colitis. No free air, free fluid or abnormal fluid collections. No hernia, mass or bulky lymphadenopathy. The urinary bladder is without significant finding. No suspicious bony findings. IMPRESSION: Suspected segmental colitis along the descending colon. Nondistention limits evaluation. No other acute findings. Incidental findings as above.
[2023-01-27] MEDS ORDERED: ONDANSETRON 4 MG/2 ML VIAL ONE ×2 (12:22→21:22)
[2023-01-27] MEDS ORDERED: NA CHLORIDE 0.9% 1,000 ML ONE (12:22)
[2023-01-27] MEDS ORDERED: FAMOTIDINE 20 MG/2 ML VIAL IV ONE (12:22)
[2023-01-27] MEDS ORDERED: MORPHINE 4 MG/ML SYR ONE ×2 (12:46→21:22)
[2023-01-27 12:47] LABS: Absolute Lymphocytes (CBC) 0.5 K/uL (0.7-4.9); Hematocrit 42.8 % (36.0-45.0); Lymphocytes % 2.4 % (15.3-44.8); MCV 89.5 fL (80-100); MPV 9.3 fL (7.6-11.3); RBC Red Blood Cell Count 4.79 M/uL (3.86-4.86)
[2023-01-27 12:58] LABS: Albumin 3.3 g/dL (3.4-5.0); Bilirubin Total 0.5 mg/dL (0.2-1.0); Potassium 3.1 mEq/L (3.5-5.1); Protein, Total 7.2 g/dL (6.4-8.2)
[2023-01-27 13:05] LABS: Blood Morphology Comment NOT SEEN (NOT SEEN); Platelet Estimate ADEQ; White Blood Cell Scan OK (OK)
--- NOTE | 2023-01-27 14:26 | ER ---
Nurse's Notes [facility] Name: Bisi Brito Age: 67 yrs Sex: Female : 1955 Arrival Date: 01/27/2023 Time: 10:31 Bed 11 Private MD: Diagnosis: Colitis;GI Bleed/ Gastrointestinal hemorrhage, unspecified;Elevated white blood cell count, unspecified Presentation: 01/27 11:18 Chief complaint: Diffuse abdominal pain, N/V, and black stools since this morning. hb Coronavirus screen: Client presents with at least one sign or symptom that may indicate coronavirus-19. Standard/surgical mask placed on the client. Ebola Screen: No symptoms or risks identified at this time. Risk Assessment: Do you want to hurt yourself or someone else? Patient reports no desire to harm self or others. Onset of symptoms was January 27, 2023. 11:18 Method Of Arrival: Wheelchair 11:18 Acuity: TAYLOR 3 hb Triage Assessment: 12:00 General: Appears uncomfortable, Behavior is calm, cooperative, appropriate for age. bp Pain: Complains of pain in abdomen. EENT: No deficits noted. Neuro: No deficits noted. Cardiovascular: No deficits noted. Respiratory: No deficits noted. GI: Reports lower abdominal pain, upper abdominal pain, bloody stool. : No signs and/or symptoms were reported regarding the genitourinary system. Derm: No deficits noted. Musculoskeletal: No deficits noted. Historical: - Allergies: 11:22 No Known Allergies; hb - PMHx: 11:22 cirrhosis of liver; hb - PSHx: 11:22 Cholecystectomy; Total abdominal hysterectomy; hb Screenin:57 [facility] ED Fall Risk Assessment (Adult) History of falling in the last 3 months, bp including since admission No falls in past 3 months (0 pts). Abuse screen: Denies threats or abuse. Denies injuries from another. Nutritional screening: No deficits noted. Tuberculosis screening: No symptoms or risk factors identified. Assessment: 12:00 General: SEE TRIAGE NOTE. bp 19:00 Reassessment: Patient appears in no apparent distress at this time. Patient and/or jb4 family updated on plan of care and expected duration. Pain level reassessed. Patient is alert, oriented x 3, equal unlabored respirations, skin warm/dry/pink. 20:00 Reassessment: Patient appears in no apparent distress at this time. Patient and/or jb4 family updated on plan of care and expected duration. Pain level reassessed. Patient is alert, oriented x 3, equal unlabored respirations, skin warm/dry/pink. Given 2 warm blankets per request. 21:29 Reassessment: Patient appears in no apparent distress at this time. Patient and/or jb4 family updated on plan of care and expected duration. Pain level reassessed. Patient is alert, oriented x 3, equal unlabored respirations, skin warm/dry/pink. 22:17 Reassessment: Patient appears in no apparent distress at this time. Patient and/or jb4 family updated on plan of care and expected duration. Pain level reassessed. Patient is alert, oriented x 3, equal unlabored respirations, skin warm/dry/pink. Pt transferred to Receiving facility via [facility]. Vital Signs: 11:18 BP 143 / 62; Pulse 71; Resp 20; Temp 98.8; Pulse Ox 100% ; hb 20:00 BP 142 / 70; Pulse 52; Resp 16; Pulse Ox 99% on R/A; jb4 21:29 BP 150 / 71; Pulse 75; Resp 16; Pulse Ox 100% on R/A; jb4 ED Course: 10:32 Patient arrived in ED. am2 11:00 Kinga Olivier FNP-C [facility] kb 11:00 Long Thomas MD is Attending Physician. kb 11:22 Triage completed. hb 11:23 Arm band placed on. hb 11:52 CT Abd/Pelvis - Without Contrast In Process Unspecified. EDMS 12:28 Marlys Underwood RN is Primary Nurse. iw 12:30 Inserted saline lock: 20 gauge in right antecubital area, using aseptic technique. bp Blood collected. 14:26 Gabi Borrego MD is Hospitalizing Provider. kb 14:30 Kvng Santos is Hospitalizing Provider. kb 15:31 Physician acceptance by Zahraa Anand. ah1 15:57 Patient has correct armband on for positive identification. Bed in low position. Call bp light in reach. Side rails up X2. Adult w/ patient. 19:08 Primary Nurse role handed off by Marlys Underwood RN jl7 20:11 Musa Monroy RN is Primary Nurse. jb4 20:22 New initial contact since shift change. Contacted [facility] to confirm if a room [facility] was available for the patient. 20:27 Hospital/ Bed acceptance by Fide Nagel RN. [facility] 20:45 EMS contacted for initial transfer. Given a 45 minute ETC. [facility] 22:17 No provider procedures requiring assistance completed. Patient transferred, IV remains jb4 in place. Administered Medications: 12:32 Drug: NS 0.9% IV 1000 ml Route: IV; Rate: 1 bolus; Site: right antecubital; iw 15:41 Follow up: IV Status: Completed infusion; IV Intake: 1000ml bp 12:32 Drug: Famotidine IVP 20 mg Route: IVP; Site: right antecubital; iw 15:41 Follow up: Response: No adverse reaction bp 12:32 Drug: Ondansetron IVP 4 mg Route: IVP; Site: right antecubital; iw 15:41 Follow up: Response: No adverse reaction bp 12:40 Drug: morphine IVP or IV 4 mg Route: IVP; Infused Over: 4 mins; Site: left antecubital; hb 15:40 Follow up: Response: No adverse reaction bp 15:16 Drug: Ciprofloxacin IVPB 400 mg Volume: 200 ml; Route: IVPB; Infused Over: 60 mins; bp Site: right antecubital; 01/28 16:16 Follow up: IV Status: Completed infusion iw 01/27 15:16 Drug: metroNIDAZOLE IVPB 500 mg Volume: 100 ml; Route: IVPB; Rate: 200 ml/hr; Infused bp Over: 30 mins; Site: right antecubital; 01/28 15:45 Follow up: IV Status: Completed infusion iw 01/27 15:40 Drug: NS 0.9% with KCl IV 20 mEq/L 1000 ml Route: IV; Rate: 125 ml/hr; Site: right bp antecubital; 22:19 Follow up: IV Status: Infusion continued upon transfer jb4 21:28 Drug: morphine IVP or IV 4 mg Route: IVP; Infused Over: 4 mins; Site: right antecubital;jb4 22:19 Follow up: Response: Marked relief of symptoms; Pain is decreased jb4 21:28 Drug: Ondansetron IVP 4 mg Route: IVP; Site: right antecubital; jb4 22:19 Follow up: Response: No adverse reaction; Marked relief of symptoms jb4 Medication: 22:17 VIS not applicable for this client. jb4 Intake: 15:41 IV: 1000ml; Total: 1000ml. bp Outcome: 14:26 Decision to Hospitalize by Provider. kb 15:13 ER care complete, transfer ordered by MD. kb 22:17 Transferred by ground EMS to [facility], Transfer form completed. jb4 X-rays sent w/ patient. 22:17 Condition: stable 22:17 Discharge instructions given to patient, Instructed on the need for transfer, Demonstrated understanding of instructions. 22:19 Patient left the ED. jb4 Signatures: Dispatcher [employer] EDMS Kinga Olivier, FISH PEDDLER-C FISH PEDDLER-CkMarlys Monson, RN RN iw Nanette Guan, RN RN Musa Bryan RN RN jbYovana Kaminski RN RN jl7 Dania Moore Brian, RN RN Kolby Subramanian [facility]
--- NOTE | 2023-01-27 14:26 | EDPHYS ---
Physician Documentation [facility] Name: Bisi Brito Age: 67 yrs Sex: Female : 1955 Arrival Date: 01/27/2023 Time: 10:31 Bed 11 Private MD: ED Physician Long Thomas HPI: 01/27 15:10 This 67 yrs old Female presents to ER via Wheelchair with complaints of Abdominal Pain, kb Nausea/Vomiting, covid+. 15:10 The patient presents with abdominal pain that is diffuse. Onset: The symptoms/episode kb began/occurred this morning. The symptoms do not radiate. Associated signs and symptoms: Pertinent positives: nausea, vomiting, and diarrhea, Pertinent negatives: fever. The symptoms are described as constant. Modifying factors: The symptoms are alleviated by nothing, the symptoms are aggravated by nothing. Severity of pain: At its worst the pain was moderate in the emergency department the pain is unchanged. The patient has not experienced similar symptoms in the past. The patient has not recently seen a physician. Pt presents for diffuse abd pain, nausea, vomiting and diarrhea (black) that started this morning. Historical: - Allergies: 11:22 No Known Allergies; hb - PMHx: 11:22 cirrhosis of liver; hb - PSHx: 11:22 Cholecystectomy; Total abdominal hysterectomy; hb ROS: 15:07 Constitutional: Negative for fever, chills, and weight loss. kb 15:07 Abdomen/GI: Positive for abdominal pain, nausea, vomiting, and diarrhea, black/tarry stool. 15:07 All other systems are negative. Exam: 15:07 Constitutional: This is a well developed, well nourished patient who is awake, alert, kb and in no acute distress. Head/Face: Normocephalic, atraumatic. ENT: Moist Mucous membranes Chest/axilla: Normal chest wall appearance and motion. Cardiovascular: Regular rate and rhythm with a normal S1 and S2. No gallops, murmurs, or rubs. No pulse deficits. Respiratory: Respirations even and unlabored. No increased work of breathing. Talking in full sentences Skin: Warm, dry with normal turgor. Normal color. MS/ Extremity: Pulses equal, no cyanosis. Neurovascular intact. Full, normal range of motion. Neuro: Awake and alert, GCS 15, oriented to person, place, time, and situation. Moves all extremities. Normal gait. 15:07 Abdomen/GI: Inspection: abdomen appears normal, Bowel sounds: normal, Palpation: abdomen is soft and non-tender, in all quadrants, mild abdominal tenderness, in the right lower quadrant and left lower quadrant, moderate abdominal tenderness, in the right upper quadrant and left upper quadrant. Vital Signs: 11:18 BP 143 / 62; Pulse 71; Resp 20; Temp 98.8; Pulse Ox 100% ; hb 20:00 BP 142 / 70; Pulse 52; Resp 16; Pulse Ox 99% on R/A; jb4 21:29 BP 150 / 71; Pulse 75; Resp 16; Pulse Ox 100% on R/A; jb4 MDM: 11:20 Patient medically screened. kb 15:08 Differential diagnosis: diverticulitis, gastritis, GI Bleed, Peptic Ulcer Disease. Data kb reviewed: vital signs, nurses notes. Consideration of Admission/Observation Patient was admitted/placed on observation. Management of patient was discussed with the following: Hospitalist: Dr Santos recommends transfer for GI due to dark stool today.. Counseling: I had a detailed discussion with the patient and/or guardian regarding: the historical points, exam findings, and any diagnostic results supporting the discharge/admit diagnosis, lab results, radiology results, the need for further work-up and treatment in the hospital, the need to transfer to another facility, [facility] does not immediately have the required specialist. 15:38 ED course: Discussed case with Dr Steinberg who accepts pt for transfer. kb 01/27 11:31 Order name: CBC with Diff; Complete Time: 13:13 kb 01/27 11:31 Order name: CMP; Complete Time: 13:13 kb 01/27 11:31 Order name: Lipase; Complete Time: 13:13 kb 01/27 11:31 Order name: Urinalysis w/ reflexes; Complete Time: 17:12 kb 01/27 13:06 Order name: CBC Smear Scan; Complete Time: 13:13 EDWI 01/27 14:59 Order name: SARS-COV-2 Antigen Rapid; Complete Time: 15:46 kb 01/27 11:31 Order name: CT Abd/Pelvis - Without Contrast; Complete Time: 12:06 kb 01/27 11:31 Order name: IV Saline Lock; Complete Time: 12:28 kb 01/27 11:31 Order name: Labs collected and sent; Complete Time: 12:28 kb Administered Medications: 12:32 Drug: NS 0.9% IV 1000 ml Route: IV; Rate: 1 bolus; Site: right antecubital; iw 15:41 Follow up: IV Status: Completed infusion; IV Intake: 1000ml bp 12:32 Drug: Famotidine IVP 20 mg Route: IVP; Site: right antecubital; iw 15:41 Follow up: Response: No adverse reaction bp 12:32 Drug: Ondansetron IVP 4 mg Route: IVP; Site: right antecubital; iw 15:41 Follow up: Response: No adverse reaction bp 12:40 Drug: morphine IVP or IV 4 mg Route: IVP; Infused Over: 4 mins; Site: left antecubital; hb 15:40 Follow up: Response: No adverse reaction bp 15:16 Drug: Ciprofloxacin IVPB 400 mg Volume: 200 ml; Route: IVPB; Infused Over: 60 mins; bp Site: right antecubital; 01/28 16:16 Follow up: IV Status: Completed infusion iw 01/27 15:16 Drug: metroNIDAZOLE IVPB 500 mg Volume: 100 ml; Route: IVPB; Rate: 200 ml/hr; Infused bp Over: 30 mins; Site: right antecubital; 01/28 15:45 Follow up: IV Status: Completed infusion iw 01/27 15:40 Drug: NS 0.9% with KCl IV 20 mEq/L 1000 ml Route: IV; Rate: 125 ml/hr; Site: right bp antecubital; 22:19 Follow up: IV Status: Infusion continued upon transfer jb4 21:28 Drug: morphine IVP or IV 4 mg Route: IVP; Infused Over: 4 mins; Site: right antecubital;jb4 22:19 Follow up: Response: Marked relief of symptoms; Pain is decreased jb4 21:28 Drug: Ondansetron IVP 4 mg Route: IVP; Site: right antecubital; jb4 22:19 Follow up: Response: No adverse reaction; Marked relief of symptoms jb4 Disposition: 01/28 08:31 Co-signature as Attending Physician, Long Thomas MD I reviewed the patient's care rn provided by the Advanced Practice Provider and agree with the diagnosis and treatment plan. Disposition Summary: 01/27/23 15:13 Transfer Ordered Transfer Location: [facility] kb Reason: Higher level of care kb Condition: Stable(01/27/23 15:13) kb Problem: new(01/27/23 15:13) kb Symptoms: are unchanged(01/27/23 15:13) kb Accepting Physician: Dr. Steinberg(01/27/23 22:19) jb4 Diagnosis - Colitis kb - GI Bleed/ Gastrointestinal hemorrhage, unspecified kb - Elevated white blood cell count, unspecified kb Forms: - Medication Reconciliation Form kb - SBAR form kb Signatures: Dispatcher [employer] EDMS Kinga Olivier, TETRYL NITRATOR OPERATOR-C TETRYL NITRATOR OPERATOR-Ckb Marlys Underwood, RN RN iw Long Thomas MD MD rn Baxter, Heather RN RN Musa Bryan RN RN jb4 Irvin Mittal RN RN bp Perry Taveras MD MD sp4 Corrections: (The following items were deleted from the chart) 01/27 14:30 14:26 Gabi Borrego kb kb 14:43 14:26 Inpatient Admission kb kb 14:43 14:26 Telemetry/MedSurg (Inpatient) kb kb 14:43 14:26 Stable kb kb 14:43 14:26 new kb kb 14:43 14:26 are unchanged kb kb 14:43 14:26 Standard kb kb 14:43 14:26 kb kb 14:43 14:26 Elevated white blood cell count kb kb 14:43 14:26 Colitis kb kb 14:43 14:30 Kvng Santos kb kb 15:38 15:13 kb kb 22:19 15:38 Dr. Steinberg kb jb4
[2023-01-27] MEDS ORDERED: METRONIDAZOLE 500mg IVPB 500 MG/100 ML BAG IV ONE (15:17)
[2023-01-27] MEDS ORDERED: CIPROFLOXACIN 400mg IV 400 MG/200 ML BAG IV ONE (15:17)
[2023-01-27] MEDS ORDERED: NS KCL 20MEQ 1,000 ML IV ONE (15:43)
[2023-01-27 15:45] LABS: SARS-CoV-2 Antigen Rapid Res Positive (Negative)
[2023-01-27 17:08] LABS: Specific Gravity 1.017 (1.005-1.030); Urine Bacteria <20 /HPF (<20); Urine Bilirubin NEGATIVE (Negative); Urine Blood 1+ (Negative); Urine Clarity Clear (Clear); Urine Color Light-Yellow (Yellow); Urine Glucose NEGATIVE (Negative); Urine Mucus Slight /HPF (None Seen); Urine Protein TRACE (Negative); Urine Urobilinogen Normal (Normal)
[2023-01-27 22:49] VITALS: TEMP 98.8
[2023-01-27 22:56] VITALS: BP 150/71; O2SAT 100
== END 2023-01-27 22:19 | disposition short-term general hospital (02) ==
LOC: ER 10:31
DX: U07.1 COVID-19 (principal); K52.9 Noninfective gastroenteritis and colitis, unspecified; K92.2 Gastrointestinal hemorrhage, unspecified; D72.829 Elevated white blood cell count, unspecified
CPT/HCPCS: 85025; 81001; 36415; 83690; 80053; 74176; 99285; 87811; J2405 ×2; J0744; J7030; J3480

== ENCOUNTER 2024-08-14 15:33 | Emergency (ER) | payer MEDICARE ==
--- NOTE | 2024-08-14 15:59 | ER ---
Nurse's Notes [facility] Name: Bisi Brito Age: 68 yrs Sex: Female : 1955 Arrival Date: 08/14/2024 Time: 15:33 Bed 6 Private MD: Diagnosis: Influenza due to identified novel influenza A virus Presentation: 08/14 15:34 Chief complaint: EMS states: FLU LIKE S/S SINCE THURSDAY, SEEN AT AND DX WITH FLU. bp TRANSIENT ABD PAIN AFTER TAKING TAMIFLU, NOW RESOLVED. Coronavirus screen: At this time, the client does not indicate any symptoms associated with coronavirus-19. Ebola Screen: No symptoms or risks identified at this time. Initial Sepsis Screen: Does the patient meet any 2 criteria? No. Patient's initial sepsis screen is negative. Does the patient have a suspected source of infection? No. Patient's initial sepsis screen is negative. Risk Assessment: Do you want to hurt yourself or someone else? Patient reports no desire to harm self or others. Onset of symptoms is unknown. 15:34 Method Of Arrival: [facility] bp 15:34 Acuity: TAYLOR 4 bp Triage Assessment: 15:41 General: Appears in no apparent distress. comfortable, Behavior is appropriate for age. bp Pain: Denies pain. GI: Abdomen is non-distended. Historical: - Allergies: 15:41 No Known Allergies; jl7 - PMHx: 15:41 cirrhosis of liver; bp - PSHx: 15:41 Cholecystectomy; Total abdominal hysterectomy; bp - Immunization history:: Adult Immunizations up to date. - Infectious Disease History:: Denies. - Social history:: Smoking status: Patient denies any tobacco usage or history of. Screenin:42 Abuse screen: Denies threats or abuse. Denies injuries from another. Nutritional jl7 screening: No deficits noted. Tuberculosis screening: No symptoms or risk factors identified. 16:06 [facility] ED Fall Risk Assessment (Adult) History of falling in the last 3 months, bp including since admission No falls in past 3 months (0 pts) Confusion or Disorientation No (0 pts) Intoxicated or Sedated No (0 pts) Impaired Gait No (0 pts) Mobility Assist Device Used No (0 pt) Altered Elimination No (0 pt) Score/Fall Risk Level 0 - 2 = Low Risk Oriented to surroundings. Assessment: 16:06 Reassessment: Patient appears in no apparent distress at this time. Patient states bp feeling better. Vital Signs: 15:34 BP 151 / 55; Pulse 71; Resp 16; Temp 97.9; Pulse Ox 19% ; bp ED Course: 15:34 Patient arrived in ED. bp 15:41 Triage completed. bp 15:41 Yovana Mehta, RN is Primary Nurse. jl7 15:41 Arm band placed on. bp 15:42 Patient has correct armband on for positive identification. Provided Education on: use jl7 of call trevino. Pulse ox on. NIBP on. 15:47 Lg Cesar FNP-C is PHCP. dr5 15:47 Eric Coulter MD is Attending Physician. dr5 16:07 No provider procedures requiring assistance completed. Patient did not have IV access bp during this emergency room visit. Administered Medications: No medications were administered Medication: 16:06 VIS not applicable for this client. bp Outcome: 15:58 Discharge ordered by MD. dr5 16:07 Discharged to home ambulatory, bp 16:07 Condition: stable 16:07 Discharge instructions given to patient, Instructed on discharge instructions, follow up and referral plans. Demonstrated understanding of instructions, follow-up care, 16:07 Patient left the ED. bp Signatures: Yovana Mehta RN RN jl7 Irvin Mittal RN RN bp Lg Cesar FNP-C FNP-Cdr5
[2024-08-14 16:24] VITALS: BP 151/55; TEMP 97.9; O2SAT 19
--- NOTE | 2024-08-15 16:08 | EDPHYS ---
Physician Documentation [facility] Name: Bisi Brito Age: 68 yrs Sex: Female : 1955 Arrival Date: 08/14/2024 Time: 15:33 Bed 6 Private MD: ED Physician Eric Coulter HPI: 08/14 18:12 This 68 yrs old Female presents to ER via EMS with complaints of Flu Symptoms.dr5 18:12 Patient is a 68-year-old female coming in with flu-like symptoms and worsening dr5 abdominal pain after taking Tamiflu this morning. Patient reports that her symptoms have resolved when she was in the ER room.. Historical: - Allergies: 15:41 No Known Allergies; jl7 - PMHx: 15:41 cirrhosis of liver; bp - PSHx: 15:41 Cholecystectomy; Total abdominal hysterectomy; bp - Immunization history:: Adult Immunizations up to date. - Infectious Disease History:: Denies. - Social history:: Smoking status: Patient denies any tobacco usage or history of. ROS: 18:12 Constitutional: as per hpi dr5 Exam: 18:12 Constitutional: This is a well developed, well nourished patient who is awake, alert, dr5 and in no acute distress. Head/Face: Normocephalic, atraumatic. Eyes: Pupils equal round and reactive to light, extra-ocular motions intact. Lids and lashes normal. Conjunctiva and sclera are non-icteric and not injected. Cornea within normal limits. Periorbital areas with no swelling, redness, or edema. Chest/axilla: Normal chest wall appearance and motion. Nontender with no deformity. No lesions are appreciated. Cardiovascular: Regular rate and rhythm with a normal S1 and S2. Normal PMI, no JVD. No pulse deficits. Respiratory: Lungs have equal breath sounds bilaterally, clear to auscultation. No rales, rhonchi or wheezes noted. No increased work of breathing, no retractions or nasal flaring. Abdomen/GI: Soft, non-tender, non-distended Back: No spinal tenderness. No costovertebral tenderness. Full range of motion. Skin: Warm, dry with normal turgor. Normal color with no rashes, no lesions, and no evidence of cellulitis. Neuro: Awake and alert, GCS 15, oriented to person, place, time, and situation. Cranial nerves II-XII grossly intact. Motor strength 5/5 in all extremities. Sensory grossly intact. Cerebellar exam normal. Normal gait. Vital Signs: 15:34 BP 151 / 55; Pulse 71; Resp 16; Temp 97.9; Pulse Ox 19% ; bp MDM: 15:47 Medical Screening Exam initiated dr5 18:12 Differential diagnosis: viral Infection, bacterial infection, URI. Data reviewed: vital dr5 signs, nurses notes. Care significantly affected by the following Social Determinants of Health: Poor access to healthcare and/or lack of insurance, Poor access to transportation, Problems related to employment. Counseling: I had a detailed discussion with the patient and/or guardian regarding the historical points, exam findings, and any diagnostic results supporting the discharge/admit diagnosis, the presence of at least one elevated blood pressure reading (>120/80) during this emergency department visit, the need for outpatient follow up, for definitive care, a family practitioner, to return to the emergency department if symptoms worsen or persist or if there are any questions or concerns that arise at home. ED course: Discussed stopping taking Tamiflu. Patient has cough medication with codeine and ondansetron as needed for cough and nausea. Recommended alternating Tylenol Motrin. Increase fluids. No symptoms on discharge. All questions answered.. Administered Medications: No medications were administered Disposition Summary: 08/14/24 15:58 Discharge Ordered Notes: Location: Home dr5 Condition: Stable dr5 Diagnosis - Influenza due to identified novel influenza A virus dr5 Followup: dr5 - With: Emergency Department - When: As needed - Reason: Worsening of condition Followup: dr5 - With: Private Physician - When: 1 - 2 days - Reason: Recheck today's complaints, Continuance of care, Re-evaluation by your physician Discharge Instructions: - Discharge Summary Sheet dr5 - Influenza, Adult dr5 Forms: - Medication Reconciliation Form dr5 - Patient Portal Instructions dr5 - Leadership Thank You Letter dr5 Signatures: Yovana Mehta RN RN jl7 Irvin Mittal RN RN bp Lg Cesar, SOCIAL SERVICES MANAGER-C SOCIAL SERVICES MANAGER-Cdr5
== END 2024-08-14 16:07 | disposition home or self-care (01) ==
LOC: ER 15:33
DX: J10.1 Influenza due to other identified influenza virus with other respiratory manifestations (principal)
CPT/HCPCS: 99283